=== PATIENT | male | born 1975 | race Caucasian/White ===

== ENCOUNTER 2020-04-14 10:47 | Inpatient (IN) | payer MEDICAID, SELFPAY ==
[2020-04-14] VITALS (14 sets, daily range): BP systolic 151–196; BP diastolic 104–147; PULSE 60–92; RESP 20–26; TEMP 35.7–36.1; O2SAT 92–100; BMI 32.1
--- NOTE | ~2020-04-14 | XR_ITS ---
EXAMINATION: XR chest 1V portable INDICATION: Cough and shortness of breath TECHNIQUE: Portable AP chest at 2156 hours COMPARISON: 04/14/2020 FINDINGS: There is stable cardiomegaly. A mild diffuse interstitial pattern persists with slight wors ening. There are small pleural effusions. No pneumothorax is identified. IMPRESSION: 1. Cardiomegaly with mildly increased pulmonary edema. Reviewed, dictated and finalized at location A.
--- NOTE | ~2020-04-14 | US_ITS ---
EXAMINATION: US retroperitoneal duplex ltd DATE: 04/17/2020 10:05 INDICATION: Uncontrolled hypertension TECHNIQUE: Multiple grayscale, color Doppler, and pulsed Doppler images of the kidneys and renal anna [place] were obtained. COMPARISON: None. FINDINGS: The aorta peak systolic velocity is 47 cm/s. Right kidney measures 11.2 cm in length with normal cont our and echogenicity and no hydronephrosis. The right renal artery peak systolic velocity is 46 cm/s in the proximal segment, 66 cm/s in the mid segment, and 88 cm/s in the distal segment. The left kidn ey measures 12.5 cm in length with normal contour and echogenicity and no hydronephrosis. The left re nal artery was unable to be visualized. IMPRESSION: 1. No Doppler evidence of right renal artery stenosis. Left renal artery was unable to be visualized . Reviewed, dictated and finalized at location A. IMPRESSION: 1. No Doppler evidence of right renal artery stenosis. Left renal artery was u nable to be visualized.
--- NOTE | ~2020-04-14 | XR_ITS ---
XR chest 2V DATE: 04/14/2020 12:32 INDICATION: Dyspnea, chest pain TECHNIQUE: PA and lateral views COMPARISON: 12/24/2015 chest 04/14/2020 CT pulmonary scan has not yet been performed FINDINGS: Mild cardiomegaly. There is mild pulmonary vascular congestion, mild prominence of the fiss ures and pulmonary interstitium, including Gianfranco B-lines. The findings are consistent with mild simona estive heart failure and pulmonary interstitial and subpleural edema. There is small pleural effusion s are suggested as well. No pulmonary consolidation is evident. Mild infiltrate or atelectasis at the lung bases, right greate r than left. No hilar or mediastinal enlargement. No pneumothorax. IMPRESSION: Mild congestive changes including subpleural and pulmonary interstitial edema and very sm all pleural effusions Mild bibasilar atelectasis, right greater than left Reviewed, dictated and finalized at location A. IMPRESSION: Mild congestive changes including subpleural and pulmonary intersti tial edema and very small pleural effusions Mild bibasilar atelectasis, right greater than left
--- NOTE | ~2020-04-14 | CT_ITS ---
EXAMINATION: CTA chest PE protocol DATE: 04/14/2020 12:48 INDICATION: Chest pain and dyspnea TECHNIQUE: Computed tomography (CT) pulmonary angiogram of the chest was performed with 100 mL Omnipa que-350 intravenous contrast. Additional 3D reconstructions utilizing coronal maximum intensity proje ction (MIP) were performed. Automated exposure control and iterative reconstruction technique were em ployed. The dose-length product was 760.04 mGy-cm. COMPARISON: None FINDINGS: Excellent contrast opacification of the pulmonary arteries. There is mild streak artifact from dense contrast in the superior vena cava and right atrium. Mild motion artifact which is most prominent sage ng side the heart and the left lower lung zone which mildly decreases sensitivity in some of the smal ler segmental and subsegmental pulmonary arteries in the left lower lobe and lingula. No pulmonary mo tion. Small bilateral posteriorly layering pleural effusions. Mild smooth septal line thickening at t he bilateral lung bases consistent with mild pulmonary edema. Mild groundglass opacity in the periphe ral posterior inferior bilateral lower lobes most likely subsegmental atelectasis or additional pulmo nary edema. No pneumonia or pneumothorax. There are few scattered bilateral small calcified pulmonary nodules along with calcified right hilar and mediastinal lymph nodes consistent with old granulomato us disease. Heart size is normal. With left ventricular hypertrophy. Small pericardial effusion. Athe rosclerotic coronary artery calcifications. Thoracic aorta is normal in caliber. Mild bilateral gynec omastia. Bones are unremarkable. IMPRESSION: 1. No pulmonary imposing. 2. Mild pulmonary edema and small bilateral pleural effusions. 3. Left ventricular hypertrophy. 4. Small pericardial effusion. Reviewed, dictated and finalized at location A.
--- NOTE | ~2020-04-14 | NM_ITS ---
EXAMINATION: NM baljeet stress w perfusion DATE: 04/17/2020 13:24 INDICATION: Chest pain. Cardiomyopathy. TECHNIQUE: Rest images were obtained following intravenous administration of 9 mCi Tc99m tetrofosmin (Myoview). The patient was infused intravenously with Lexiscan (regadenoson). Then, 27 mCi Tc99m tetr ofosmin (Myoview) was administered intravenously, and stress images were obtained. Data was reconstru cted into short axis and horizontal and vertical long axis SPECT images. Gated SPECT images were also obtained. COMPARISON: Chest CT 04/14/2020 FINDINGS: There is no definite reversible or fixed perfusion abnormality to suggest ischemia or infar ction. There is global hypokinesis. Left ventricular ejection fraction measures 26%. IMPRESSION: 1. No definite ischemia or infarct. 2. Global hypokinesis with left ventricular ejection fraction measuring 26%. Reviewed, dictated and finalized at location E.
--- NOTE | 2020-04-14 11:54 | ECG_ITS ---
Measurements Intervals [place] Rate: 86 P: 63 MN: 179 QRS: 24 QRSD: 104 T: 70 QT: 412 QTc: 494 Interpretive Statements SINUS RHYTHM LEFT ATRIAL ENLARGEMENT BORDERLINE T WAVE ABNORMALITY- LATERAL LEADS BASELINE ARTIFACT- I, II, III, V1-V3 BORDERLINE ECG Electronically Signed On 04-14-2020 11:58:06 CDT by Moshe Chavez D.O.
--- NOTE | 2020-04-14 11:55 | ED.CHESTPAIN ---
HPI - Chest Pain General Chief Complaint: Chest Pain Stated Complaint: CHEST PAIN Time Seen by Provider: 04/14/20 11:41 Source: patient and family Mode of arrival: ambulatory Limitations: no limitations History of Present Illness HPI narrative: Patient is a 45-year-old male who presents to the emergency department with complaint of chest pain and shortness of breath. Patient reports onset of symptoms a couple of weeks ago. Patient notes that he is short of breath when he is lying flat and has a cough when he is lying flat. He feels better when he is sitting up. Patient is also noted sharp chest pains. Patient reports being awoken at 2:00 this morning with worsening symptoms and feeling that something was sitting on his chest. The shortness of breath has persisted. He locates the pain under his ribs bilaterally and that it is been constant. Patient has a history of hypertension, but has been noncompliant with his medications and not taken them in at least a couple of months. Patient has not seen a primary care physician in approximately 1 year. Patient also has reported symptoms of sleep apnea, but never completed a sleep study. MD complaint: chest pain and other (dyspnea) Onset (ago): week(s) Timing of current episode: constant Prior episodes: Yes Onset: awoke with symptoms Pain location: subxiphoid (Under ribs bilaterally) Pain radiation: none Quality: heaviness and other (Something sitting on his chest) Relieving factors: sitting upright Exacerbating factors: other (Laying flat) Associated symptoms: dyspnea, cough (Nonproductive) and leg swelling Related Data Home Medications Medication Instructions Recorded Confirmed No Home Medications 04/14/20 04/14/20 Allergies Allergy/AdvReac Type Severity Reaction Status Date / Time No Known Allergies Allergy Verified 04/14/20 11:30 Review of Systems Review of Systems: All systems reviewed & are unremarkable except as noted in HPI and below Constitutional: Constitutional: Denies fever(s) ENT: Reports system reviewed and no additional complaints, except as documented and Reports as per HPI Cardiovascular: Cardiovascular: Reports chest pain, Reports pedal edema and Reports leg edema Respiratory: Respiratory: Reports cough and Reports dyspnea Gastrointestinal: Gastrointestinal: Denies abdominal pain PMF Past Medical History Medical History (Updated 04/14/20 @ 20:10 by Wendy Zamarripa MD) Hypertension Tobacco dependence Surgical History Surgical History No significant past surgical history Family History Family History (Updated 04/14/20 @ 16:54 by Emelyn Martínez RN) Other Unknown family medical history Social History Social History (Updated 04/14/20 @ 14:49 by Radha Rice PA-C) Social History: Mr. Daniels lives in [place]. He smokes Smoking packs per day: 0.5 Smoking cigarettes per day: 10.0 Years smoked: 9 Smoking pack-years: 4.50 Smoking status: Light tobacco smoker Tobacco type: cigarettes Alcohol intake: current Drinks per week: 6 Substance use: current Substance use type: marijuana Gender identity (if verbalized by the patient): Male Spiritual care concerns: No Exam Const: General: cooperative, no acute distress and alert Nutritional Appearance: overweight Orientation/consciousness: patient oriented x3 Limitations: no limitations HENMT: Mouth: Yes lip normal and Yes moist mucous membranes Resp: Effort & Inspection: normal respiratory effort Auscultation: clear to auscultation bilaterally Cardio: Rate: regular rate Rhythm: regular rhythm Peripheral pulses: dorsalis pedis present bilateral 2+ GI: GI Palp: Yes Soft to palpation and No Tenderness to palpation present (GI) Auscultation: normal bowel sounds Skin: General skin exam: normal color Neuro: General: patient oriented x3 Cognition (Neuro): normal cognition Sp
[2020-04-14 12:04] LABS: Basophils Absolute Auto 0.1 K/mm3 (0.0-0.1); Basophils Percent Auto 0.7 % (0.2-1.2); Eosinophils Absolute Auto 0.3 K/mm3 (0-0.3); Eosinophils Percent Auto 2.8 % (0-4.4); Hematocrit 46.9 % (42.0-52.0); Hemoglobin 16.1 g/dL (14.0-18.0); Immature Granulocyte Absolute 0.05 K/mm3 (0.00-0.031); Immature Granulocyte Percent A 0.5 % (0-0.5); Lymphocytes Absolute Auto 1.68 K/mm3 (0.9-3.2); Lymphocytes Percent Auto 15.9 % (18.3-44.2); Mean Corpuscular HGB Conc 34.3 g/dl (32-36); Mean Corpuscular Hemoglobin 31.6 pg (26-34); Mean Corpuscular Volume 92.1 fl (80-100); Mean Platelet Volume 11.1 fl (7.4-10.4); Monocytes Absolute Auto 0.6 K/mm3 (0.1-0.6); Monocytes Percent Auto 5.5 % (2.6-8.5); Neutrophils Absolute Auto 7.9 K/mm3 (1.3-6.7); Neutrophils Percent Auto 74.6 % (45.5-73.1); Platelet Count Result 213 k/mm3 (150-375); Red Blood Count 5.09 M/mm3 (4.6-6.20); Red Cell Distribution Width 13.4 % (11.5-14.5); White Blood Count 10.6 K/mm3 (4.5-10.0)
[2020-04-14] MEDS: ASPIRIN 81 MG CHEWABLE TABLET 324 MG PO (12:05)
[2020-04-14] MEDS: NITROGLYCERIN OINTMENT 1 INCH DOSE TRANSDERM ×3 (12:06→23:28)
[2020-04-14] MEDS: NITROGLYCERIN SL 0.4 MG TABLET SUBLINGUAL (12:08)
--- NOTE | 2020-04-14 12:17 | PC.NURSE ---
Placed Nitro patch on pts upper left shoulder, also gave pt 1 nitro pill. Pt states this helped his chest pain. Informed Dr. Osorio of this.
[2020-04-14 12:18] LABS: Prothrombin Time 12.4 Seconds (11.1-14.7)
[2020-04-14 12:19] LABS: Partial Thromboplastin Time 25.3 SECONDS (22.3-36.8)
[2020-04-14 12:21] LABS: D Dimer 1.02 ug/mL (<0.48)
[2020-04-14 12:23] LABS: Blood Urea Nitrogen 15 mg/dL (9-20); Calcium 8.8 mg/dL (8.4-10.2); Carbon Dioxide 27 mmol/L (22-30); Chloride 106 mmol/L (98-107); Estimated Glomerular Filt Rate > 60; Glucose 106 mg/dL (75-110); Potassium 3.2 mmol/L (3.4-5.0); Sodium 138 mmol/L (137-145)
[2020-04-14 12:40] LABS: NT Pro B Type Natriuretic Pept 2260 PG/ML (5-100); Troponin I 0.092 ng/mL (0.000-0.034)
[2020-04-14] MEDS: FUROSEMIDE INJ 40 MG/4 ML VIAL IV PUSH ×2 (14:28→20:02)
[2020-04-14 15:22] LABS: Troponin I 0.088 ng/mL (0.000-0.034)
--- NOTE | 2020-04-14 16:40 | PM.CNCAR ---
Assessment and Plan Additional Plan 45-year-old man with: Longstanding hypertension presenting with shortness of breath positional dyspnea suggests left ventricular dysfunction, unknown systolic versus diastolic at this time. Exam is more suggestive of diastolic dysfunction. He does have atypical momentary chest pain which does not seem anginal in nature by his description at this time I would recommend starting out with carvedilol and lisinopril to initially initiate medical antihypertensive therapy. IV furosemide is reasonable today he does not look dramatically volume overloaded so I do not think he is going to need to be diuresed for for more than 24-48 hours. Of course an echocardiogram will be ordered this will be useful in assessing the degree of hypertensive heart disease that we are dealing with here and we will provide further recommendations after the those findings are available Dave Pinedo MD [facility] History of Present Illness History of Present Illness Consult date/time: Date of service: 04/14/20 16:40 Consult reason: hypertension Reason For Visit: Acute congestive heart failure Narrative: This is a 45-year-old patient that I am seeing at the request of the hospitalist because of hypertension and dyspnea. The patient states he has not been ever mentioned or been aware of any cardiac problems that he has had in the past but has been having difficulty with shortness of breath starting about the last couple of months but getting particularly bothersome in the last 3-4 days. He has noticed shortness of breath with modest activity and in the last couple of days he has noticed symptoms of orthopnea with increasing dyspnea with the supine position. He has not had any accumulating lower extremity edema. Because of the sense of air hunger he came to the emergency department for evaluation. He is felt to be in some degree of decompensated heart failure after evaluation down there he has been admitted to IMU. Thus far his orders include some furosemide and nitroglycerin paste. He appears to be in no distress at this time he is still rather hypertensive and I do not see that any medication has been ordered for that specifically. IMS to see him in consultation presumably to assist with these matters. The order also reports that he has been having chest pain prompting consultation. The patient reports brief episodes of nonexertional central precordial pain that occurs in an unpredictable fashion. He does not describe at least at this time to me anything that sounds like exertional angina. His electrocardiogram shows a sinus mechanism with findings of left ventricular hypertrophy and secondary repolarization abnormalities. The patient states that he had not seen a physician in about 20 or 30 years and did see a physician because of headaches about 3 years ago. He was told to take medication for blood pressure with which he was not compliant and therefore is not on any medication coming into the hospital. He works as an asphalt paving foreman and smokes cigarettes about a half a pack per day Review of Systems Constitutional: Constitutional: Reports no additional constitutional complaints Eyes: Eyes: Reports no additional eye complaints ENT: Reports system reviewed and no additional complaints, except as documented Cardiovascular: Cardiovascular: Reports as per HPI Respiratory: Respiratory: Reports as per HPI Gastrointestinal: Gastrointestinal: Reports no additional gastrointestinal complaints Genitourinary: Genitourinary: Reports no additional male genitourinary complaints Musculoskeletal: Musculoskeletal: Reports arthralgias Neurologic: Reports system reviewed and no additional complaints, except as documented Psychiatric: Psychiatric: Reports no additional psychiatric complaints Endocrine: Endocrine: Reports no additional endocrine complaints Hematologic/Lymphatic: Hematologic/Lymphatic: Reports no additional hematologic/lymphatic c
--- NOTE | 2020-04-14 16:45 | PM.IMHP ---
H&P: HPI History of Present Illness Chief complaint: Chest pain and shortness of breath. Narrative: Pablito Daniels is a 45-year-old male smoker with untreated hypertension who presented to the emergency department earlier today for evaluation of chest pain and shortness of breath. Over the past over the past several weeks, he reports increasing dyspnea on lesser and lesser exertion. He lays asphalt for living, and his shortness of breath has been so bad over the past week or so and that he is having to stop and rest frequently. Over the past 2 days, things have gotten progressively worse and he now describes orthopnea and it is to the point that he is short of breath when even walking around the home. He has also had a mild, nonproductive cough. Additionally, he reports constant midsternal chest heaviness ?like a car is sitting on there for the past couple of days. In the emergency department today, his blood pressure was as high as 196/129. With further questioning, he does admit to being diagnosed with hypertension sometime last fall and he was started on several different medications. He stopped taking them however because they caused him to be sleepy. He has a sphygmomanometer at home and when he checks his blood pressures, they are typically in the 170s over 120s. He has no known history of sleep apnea, but does wake up at night at times feeling short of breath, and his fiancee reports that he snores loudly. He is frequently fatigued throughout the day as well. He denies lower extremity edema, recent travel, history of venous thromboembolism, and pleuritic pain. No known history of cardiac or pulmonary disease. He denies headache, vertigo, visual changes, focal weakness, and paresthesias. Review of Systems Review of Systems: Narrative: Twelve systems were reviewed with pertinent positives and negatives as per HPI. No fever or chills. Occasional sweats. No cold or flu symptoms. Denies nausea and vomiting. No diarrhea or constipation. Rare tingling in his feet. Except as documented, all other systems were reviewed and are negative. [facility] Past Medical History Medical History (Updated 04/14/20 @ 20:10 by Wendy Zamarripa MD) Hypertension Tobacco dependence Surgical History Surgical History No significant past surgical history Family History Family History (Updated 04/14/20 @ 16:54 by Emelyn Martínez RN) Other Unknown family medical history Social History Social History (Updated 04/14/20 @ 21:27 by Radha Rice PA-C) Social History: The patient was raised by his grandmother,, and does not know much about his parents. He does know that they are both in his father was an alcoholic. The patient himself has 4 children, who are healthy. He lives in [place] with his fiancee and children. He smokes about half a pack of cigarettes per day and has for the last 10 years. He drinks alcohol socially on the weekends, and in moderation, perhaps 6 beers a week. Occasional marijuana use. He designates his fiancee, Eliz Arias, as his surrogate decision maker and he wishes to be a full code. Smoking packs per day: 0.5 Smoking cigarettes per day: 10.0 Years smoked: 9 Smoking pack-years: 4.50 Smoking status: Light tobacco smoker Tobacco type: cigarettes Alcohol intake: current Drinks per week: 6 Substance use: current Substance use type: marijuana Gender identity (if verbalized by the patient): Male Spiritual care concerns: No Meds Home Medications and Allergies Home Medications Medication Instructions Recorded Confirmed Type No Home Medications 04/14/20 04/14/20 History Allergies Allergy/AdvReac Type Severity Reaction Status Date / Time No Known Allergies Allergy Verified 04/14/20 11:30 Vital Signs Vital Signs - 24 hr 04/14/20 11:10 04/14/20 12:32 04/14/20 14:16 Pulse Rate 86 85 74 R
--- NOTE | 2020-04-14 17:03 | ADMGEN ---
Addendum entered by Emelyn Martínez RN 04/14/20 17:09: arrived @ 1610 to IMU Original Note: This patient, Pablito Daniels, was admitted to IMU Room 204-01. Patient/family oriented to hospital policies and general routines including ID bracelet, bed and alarms, visiting hours, pain management, procedures, bathroom and other care routines, personal items, smoking policy, room service/diet, and visiting hours. Valuables list has been completed. Information on how to activate the Rapid Response Team has been discussed. Patient/Family are encouraged to report perceived risks to care and to ask questions if they do not understand what they are told or what they should do.
[2020-04-14] MEDS: carvediloL 12.5 MG TABLET PO (17:34)
[2020-04-14] MEDS: POTASSIUM CHLORIDE 20 MEQ TABLET.ER PO (17:36)
[2020-04-14] MEDS: lisinopriL 20 MG TABLET PO (17:36)
[2020-04-14 18:21] LABS: Troponin I 0.082 ng/mL (0.000-0.034)
[2020-04-15] VITALS (17 sets, daily range): BP systolic 144–166; BP diastolic 83–122; PULSE 71–90; RESP 20–26; TEMP 35.6–36.9; O2SAT 97–100
--- NOTE | 2020-04-15 | ECHO_ITS ---
Patient Info Name: Pablito Daniels Age: 45 years : 1975 Gender: Male Ht: 74 in Wt: 250 lbs BSA: 2.46 m2 HR: 70 bpm BP: 164 / 101 mmHg Heart Rhythm: Sinus Rhythm Technical Quality: Good Exam Date: 04/15/2020 8:57 AM Exam Location: [facility] Patient Status: Inpatient Admit Date: 04/14/2020 Staff Ordering Physician: Dave Pinedo MD Label Coder: Jonny Durham RDCS Attending Provider: Landon Good MD Referring Physician: Shahida BAHENA; Exam Type: CA echo doppler color flow Study Info Indications 401.9 - Unspecified Essential Hypertension Complete two-dimensional, color flow and Doppler transthoracic echocardiogram is performed. Strain analysis performed. History/Risk Factors HTN urgency; SOB, CHF, orthopnea. Summary 1. Left ventricular chamber dimension is moderately enlarged. 2. Left ventricular systolic function is moderately reduced, estimated at 35-40%. 3. There is moderately increased left ventricular wall thickness. 4. The left ventricular diastolic function is grade II diastolic dysfunction. 5. Global longitudinal strain is abnormal at 10 %. 6. Global hypokinesis of the left ventricle. 7. There is mild mitral valve regurgitation. 8. There is mild tricuspid valve regurgitation. Left Ventricle Left ventricular chamber dimension is moderately enlarged. Left ventricular systolic function is moderately reduced, estimated at 35-40%. There is moderately increased left ventricular wall thickness. The left ventricular diastolic function is grade II diastolic dysfunction. Global longitudinal strain is abnormal at 10 %. Global hypokinesis of the left ventricle. Right Ventricle Right ventricular chamber dimension is normal. Right ventricular systolic function is normal. Right Atria Right atrial chamber dimension is normal. Atrial Septum Intact interatrial septum visualized by color flow imaging. Aortic Valve The aortic valve is trileaflet. There is mild aortic valve sclerosis. There is no aortic valve stenosis. There is trace aortic valve regurgitation. Pulmonic Valve The pulmonic valve is normal. There is no pulmonic valve stenosis. There is trace pulmonic regurgitation. Mitral Valve The mitral valve has thickened leaflets. There is no mitral valve stenosis. There is mild mitral valve regurgitation. Tricuspid Valve The tricuspid valve leaflets are normal. There is no significant tricuspid valve stenosis. There is mild tricuspid valve regurgitation. Pericardium/Pleural The pericardium appears normal. There is no pericardial effusion. Inferior Vena Cava Normal inferior vena cava with >50% collapse upon inspiration consistent with normal right atrial pressure, 5 mmHg. Aorta The aortic root size at the sinus of Valsalva is normal. The prox ascending aorta size is normal. Left Ventricular Outflow Tract Name Value Normal LVOT 2D LVOT Diameter 2.2 cm LVOT Doppler LVOT Peak Gradient 11 mmHg LVOT Mean Gradient 6 mmHg LVOT VTI 2
[2020-04-15] MEDS: NITROGLYCERIN OINTMENT 1 INCH DOSE TRANSDERM (06:27)
[2020-04-15] MEDS: ACETAMINOPHEN 325 MG TABLET 650 MG PO (06:29)
[2020-04-15 06:48] LABS: Blood Urea Nitrogen 17 mg/dL (9-20); Calcium 8.4 mg/dL (8.4-10.2); Carbon Dioxide 29 mmol/L (22-30); Chloride 106 mmol/L (98-107); Estimated CRCL calculation 86 ml/min; Estimated Glomerular Filt Rate 60; Glucose 103 mg/dL (75-110); Magnesium 1.8 mg/dL (1.6-2.3); Potassium 3.2 mmol/L (3.4-5.0); Sodium 136 mmol/L (137-145)
[2020-04-15] MEDS: ASPIRIN 81 MG CHEWABLE TABLET PO (08:30)
[2020-04-15] MEDS: POTASSIUM CHLORIDE 20 MEQ TABLET 40 MEQ PO ×2 (08:30→12:11)
[2020-04-15] MEDS: carvediloL 12.5 MG TABLET PO (08:31)
[2020-04-15] MEDS: lisinopriL 20 MG TABLET PO (08:31)
[2020-04-15] MEDS: FUROSEMIDE INJ 40 MG/4 ML VIAL IV PUSH (08:31)
--- NOTE | 2020-04-15 10:37 | PM.PNCARD ---
Progress Note: A&P Assessment and Plan (1) Elevated troponin: Code(s): R79.89 - Other specified abnormal findings of blood chemistry Status: Acute Assessment and Plan: not related to acute plaque rupture (2) Congestive heart failure: Qualifiers: Heart failure chronicity: acute Heart failure type: unspecified Qualified Code(s): I50.9 - Heart failure, unspecified Code(s): I50.9 - Heart failure, unspecified Status: Acute Assessment and Plan: systolic in etiology. This is likely related to prolonged severe hypertension Continue current dose of carvedilol. Will discontinue nitroglycerin paste, add spironolactone 25 mg p.o. daily and stop lisinopril and switch him to Entresto 24/26 mg p.o. b.i.d. continue diuresis. Eventually will need an ischemic evaluation as an outpatient (3) Noncompliance with medications: Code(s): Z91.14 - Patient's other noncompliance with medication regimen Status: Acute (4) Tobacco dependence: Code(s): F17.200 - Nicotine dependence, unspecified, uncomplicated Status: Acute (5) Hypokalemia: Code(s): E87.6 - Hypokalemia Status: Acute (6) Hypertensive urgency: Code(s): I16.0 - Hypertensive urgency Status: Acute Assessment and Plan: blood pressure is more stable. Subjective Date/time seen: 04/15/20 10:37 Interval history: chief complaint: Shortness of breath, heart failure, hypertension Date of service 04/15/2020: He feels better but still short of breath with mild activity. No chest pain. No swelling Review of Systems Constitutional: Constitutional: Reports no additional constitutional complaints Eyes: Eyes: Reports no additional eye complaints ENT: Reports system reviewed and no additional complaints, except as documented Cardiovascular: Cardiovascular: Reports as per HPI Respiratory: Respiratory: Reports as per HPI Gastrointestinal: Gastrointestinal: Reports no additional gastrointestinal complaints Genitourinary: Genitourinary: Reports no additional male genitourinary complaints Musculoskeletal: Musculoskeletal: Reports arthralgias Neurologic: Reports system reviewed and no additional complaints, except as documented Psychiatric: Psychiatric: Reports no additional psychiatric complaints Endocrine: Endocrine: Reports no additional endocrine complaints Hematologic/Lymphatic: Hematologic/Lymphatic: Reports no additional hematologic/lymphatic complaints Exam Const: General: comfortable and no acute distress Other: Well-developed well-nourished HENMT: Mouth: Yes moist mucous membranes Eyes: Sclera: sclerae normal Pupils: Equal, round and reactive pupils present Neck: Neck: supple and no JVD Thyroid: thyroid normal Other: Normal carotid upstrokes no audible bruits Resp: Effort & Inspection: normal respiratory effort Auscultation: crackles bilateral at the base Cardio: Rate: regular rate Rhythm: regular rhythm Other: PMI difficult to palpate S4 is evident, no murmur GI: Auscultation: normal bowel sounds Skin: General skin exam: normal color Neuro: Cranial nerves: Yes Equal, round and reactive pupils present Cognition (Neuro): normal cognition Extrem: General: normal to inspection Other: Distal perfusion is intact there is no perceptible edema Psych: Appearance: grossly normal Objective Data Vital Signs Vital Signs: Vital Signs - 24 hr 04/14/20 11:10 04/14/20 12:32 04/14/20 14:16 Temperature Pulse Rate 86 85 74 Respiratory Rate 20 Blood Pressure 175/129 H 151/108 H Pulse Oximetry 92 97 04/14/20 16:16 04/14/20 16:42 04/14/20 17:00 Temperature 35.7 C L Pulse Rate 85 73 89 Respiratory Rate 20 20 Blood Pressure 183/135 H 195/147 H Pulse Oximetry 100 99 04/14/20 17:05 04/14/20 17:34 04/14/20 18:00 Temperature Pulse Rate 92 89 Respiratory Rate Blood Pressure 196/129 H Pulse Oximetry 04/14/20
[2020-04-15] MEDS: SPIRONOLACTONE 25 MG TABLET PO (12:11)
--- NOTE | 2020-04-15 13:02 | PC.NURSE ---
Dr. Dowell notified of elevated blood pressure 157/113. No complaints of headache, shortness of breath or chest pain. No additional orders at this time. Will continue to monitor closely.
[2020-04-15] MEDS: POTASSIUM CHLORIDE 20 MEQ TABLET.ER PO (16:55)
[2020-04-15] MEDS: LORAZEPAM 0.5 MG TABLET PO ×2 (16:56→23:44)
--- NOTE | 2020-04-15 18:10 | PM.IMPN ---
Progress Note: A&P Assessment and Plan (1) Congestive heart failure: Qualifiers: Heart failure chronicity: acute Heart failure type: unspecified Qualified Code(s): I50.9 - Heart failure, unspecified Code(s): I50.9 - Heart failure, unspecified Status: Acute Assessment and Plan: Clinically appears to have congestive heart failure with elevated BNP and pulmonary edema noted on imaging. Confirmed by echo 04/15 EF 35% LVH chest x-ray and echo, likely due to longstanding uncontrolled hypertension. diuresed, MARTIR-inhibitor, beta-osiel, cardiology to add Entresto . (2) Hypertensive urgency: Code(s): I16.0 - Hypertensive urgency Status: Acute Assessment and Plan: Longstanding, uncontrolled hypertension. He has been started on carvedilol and lisinopril and will change to entresto (3) Elevated troponin: Code(s): R79.89 - Other specified abnormal findings of blood chemistry Status: Acute Assessment and Plan: Secondary to CHF and uncontrolled hypertension. Echocardiogram as above. (4) Hypokalemia: Code(s): E87.6 - Hypokalemia Status: Acute Assessment and Plan: Potassium will be replaced and will be monitored. 100 meq today (5) Noncompliance with medications: Code(s): Z91.14 - Patient's other noncompliance with medication regimen Status: Acute Assessment and Plan: Patient told dr akins he did not take his antihypertensives because made him feel sleepy. History suggestive of possible sleep apnea, thus will direct apnea link. Dr akins discussed the importance of controlling his hypertension, and the complication he can expect should it continue to go uncontrolled. (6) Tobacco dependence: Code(s): F17.200 - Nicotine dependence, unspecified, uncomplicated Status: Acute Assessment and Plan: Smoking cessation is imperative and was discussed. Between 3 and 5 minutes were spent counseling the patient in smoking cessation. He seems motivated, tells me he only started smoking within the last 10 years or less. Subjective Date/time seen: 04/15/20 18:10 Interval history: Date of visit 04/15. 45-year-old hypertensive male admitted with heart decelerated hypertension and congestive heart failure. Feeling better less short of breath and no edema, but no chest pain Exam Narrative: Exam Narrative: Blood pressure 164/82 pulse is 80 and regular afebrile General: Well-developed male sitting up in bed in no acute distress. HEENT: . PERRL, . Sclerae anicteric. . Neck: Supple. No JVD.. Respiratory: Lungs are clear to auscultation bilaterally. Cardiovascular: Regular rate and rhythm with S1-S2. S4 evident. Gastrointestinal: Abdomen is soft, nontender, and nondistended with positive bowel sounds. Skin: Warm and dry. No rash or lesions Extremities: No edema. Radial and pedal pulses intact. Neurological: Alert. Cranial nerves 2-12 are grossly intact. No gross focal deficits Psychiatric: Pleasant and cooperative with normal mood and affect. Objective Data Vital Signs Vital Signs: Vital Signs - 24 hr 04/14/20 19:03 04/14/20 19:49 04/14/20 20:00 Temperature 36.1 C L Pulse Rate 79 76 77 Respiratory Rate 26 H Blood Pressure 170/106 H 161/104 H Pulse Oximetry 98 04/14/20 22:00 04/14/20 23:39 04/15/20 00:00 Temperature 35.8 C L Pulse Rate 60 75 77 Respiratory Rate 22 H Blood Pressure 151/118 H Pulse Oximetry 95 04/15/20 02:00 04/15/20 04:00 04/15/20 04:31 Temperature 36.4 C L Pulse Rate 75 71 73 Respiratory Rate 20 Blood Pressure 164/101 H Pul
[2020-04-15] MEDS: carvediloL 25 MG TABLET PO (19:59)
[2020-04-16] VITALS (21 sets, daily range): BP systolic 155–185; BP diastolic 108–138; PULSE 20–88; RESP 18–24; TEMP 36.1–36.7; O2SAT 95–100
[2020-04-16 05:04] LABS: Blood Urea Nitrogen 23 mg/dL (9-20); Carbon Dioxide 25 mmol/L (22-30); Chloride 107 mmol/L (98-107); Estimated CRCL calculation 80 ml/min; Estimated Glomerular Filt Rate 55; Glucose 99 mg/dL (75-110); Potassium 3.6 mmol/L (3.4-5.0); Sodium 138 mmol/L (137-145)
[2020-04-16] MEDS: carvediloL 25 MG TABLET PO ×2 (08:38→20:02)
[2020-04-16] MEDS: POTASSIUM CHLORIDE 20 MEQ TABLET.ER PO ×2 (08:39→17:19)
[2020-04-16] MEDS: ASPIRIN 81 MG CHEWABLE TABLET PO (08:39)
[2020-04-16] MEDS: SPIRONOLACTONE 25 MG TABLET PO (08:40)
[2020-04-16] MEDS: lisinopriL 20 MG TABLET PO (08:40)
[2020-04-16] MEDS: LORAZEPAM 0.5 MG TABLET PO ×3 (08:42→23:20)
--- NOTE | 2020-04-16 10:28 | PM.PNCARD ---
Progress Note: A&P Assessment and Plan (1) Elevated troponin: Code(s): R79.89 - Other specified abnormal findings of blood chemistry Status: Acute Assessment and Plan: not related to acute plaque rupture (2) Congestive heart failure: Qualifiers: Heart failure chronicity: acute Heart failure type: unspecified Qualified Code(s): I50.9 - Heart failure, unspecified Code(s): I50.9 - Heart failure, unspecified Status: Acute Assessment and Plan: systolic in etiology. This is likely related to prolonged severe hypertension Agree with carvedilol 25 mg p.o. b.i.d.., continue spironolactone, lisinopril at current dosages. Will add hydralazine 25 mg p.o. t.i.d.. Eventually will need an ischemic evaluation as an outpatient (3) Noncompliance with medications: Code(s): Z91.14 - Patient's other noncompliance with medication regimen Status: Acute Assessment and Plan: Encouraged (4) Tobacco dependence: Code(s): F17.200 - Nicotine dependence, unspecified, uncomplicated Status: Acute (5) Hypokalemia: Code(s): E87.6 - Hypokalemia Status: Acute Assessment and Plan: Normalized. (6) Hypertensive urgency: Code(s): I16.0 - Hypertensive urgency Status: Acute Assessment and Plan: Blood pressure still uncontrolled.? Secondary causes of hypertension. Does have sleep apnea but has not been treated because he cannot do a sleep study. Untreated sleep apnea can cause hypertension, low potassium is also noted and therefore will check a renin/aldosterone level. Will also check a renal artery ultrasound Subjective Date/time seen: 04/16/20 10:28 Interval history: chief complaint: Shortness of breath, heart failure, hypertension Date of service 04/16/2020: He still feels short of breath. No edema. No palpitations. Review of Systems Constitutional: Constitutional: Reports no additional constitutional complaints Eyes: Eyes: Reports no additional eye complaints ENT: Reports system reviewed and no additional complaints, except as documented Cardiovascular: Cardiovascular: Reports as per HPI Respiratory: Respiratory: Reports as per HPI Gastrointestinal: Gastrointestinal: Reports no additional gastrointestinal complaints Genitourinary: Genitourinary: Reports no additional male genitourinary complaints Musculoskeletal: Musculoskeletal: Reports arthralgias Neurologic: Reports system reviewed and no additional complaints, except as documented Psychiatric: Psychiatric: Reports no additional psychiatric complaints Endocrine: Endocrine: Reports no additional endocrine complaints Hematologic/Lymphatic: Hematologic/Lymphatic: Reports no additional hematologic/lymphatic complaints Allergic/Immunologic: Allergic/Immunologic: Reports no additional allergic/immunologic complaints Exam Const: General: comfortable and no acute distress Other: Well-developed well-nourished HENMT: Mouth: Yes moist mucous membranes Eyes: Sclera: sclerae normal Pupils: Equal, round and reactive pupils present Neck: Neck: supple and no JVD Thyroid: thyroid normal Other: Normal carotid upstrokes no audible bruits Resp: Effort & Inspection: normal respiratory effort Auscultation: crackles bilateral at the base Cardio: Rate: regular rate Rhythm: regular rhythm Other: PMI difficult to palpate S4 is evident, no murmur GI: Auscultation: normal bowel sounds Skin: General skin exam: normal color Neuro: Cranial nerves: Yes Equal, round and reactive pupils present Cognition (Neuro): normal cognition Extrem: General: normal to inspection Other: Distal perfusion is intact there is no perceptible edema Psych: Appearance: grossly normal Objective Data Vital Signs Vital Signs: Vital Signs - 24 hr 04/15/20 11:59 04/15/20 12:00 04/15/20 14:00 Temperature 36.2 C L Pulse Rate 82 74 71 Respiratory Rate 24 H Blood Pressure
[2020-04-16] MEDS: hydrALAZINE HCL 25 MG TABLET PO ×2 (11:40→17:19)
--- NOTE | 2020-04-16 14:50 | PC.NURSE ---
Non-administered 1300 dose of Hydralazine 25mg due to first dose arriving to floor from pharmacy at 1130 and administration was at 1140.
--- NOTE | 2020-04-16 17:57 | PM.IMPN ---
Progress Note: A&P Assessment and Plan (1) Congestive heart failure: Qualifiers: Heart failure chronicity: acute Heart failure type: unspecified Qualified Code(s): I50.9 - Heart failure, unspecified Code(s): I50.9 - Heart failure, unspecified Status: Acute Assessment and Plan: Clinically appears to have congestive heart failure with elevated BNP and pulmonary edema noted on imaging. Confirmed by echo 04/15 EF 35% LVH chest x-ray and echo, likely due to longstanding uncontrolled hypertension. diuresed, MARTIR-inhibitor, beta-osiel, cardiology adding hydralazine stop diruretic with increasing bun and creatinine . (2) Hypertensive urgency: Code(s): I16.0 - Hypertensive urgency Status: Acute Assessment and Plan: Longstanding, uncontrolled hypertension. He has been started on carvedilol and lisinopril and adding hydralazine (3) Elevated troponin: Code(s): R79.89 - Other specified abnormal findings of blood chemistry Status: Acute Assessment and Plan: Secondary to CHF and uncontrolled hypertension. Echocardiogram as above. (4) Hypokalemia: Code(s): E87.6 - Hypokalemia Status: Acute Assessment and Plan: Potassium will be replaced and will be monitored. 100 meq today K 3.8 today and aldactone added (5) Noncompliance with medications: Code(s): Z91.14 - Patient's other noncompliance with medication regimen Status: Acute Assessment and Plan: Patient told dr akins he did not take his antihypertensives because made him feel sleepy. History suggestive of possible sleep apnea, thus will direct apnea link. Dr akins discussed the importance of controlling his hypertension, and the complication he can expect should it continue to go uncontrolled. (6) Tobacco dependence: Code(s): F17.200 - Nicotine dependence, unspecified, uncomplicated Status: Acute Assessment and Plan: Smoking cessation is imperative and was discussed. Between 3 and 5 minutes were spent counseling the patient in smoking cessation. He seems motivated, tells me he only started smoking within the last 10 years or less. Subjective Date/time seen: 04/16/20 17:57 Interval history: Date of visit 04/16. 45-year-old hypertensive male admitted with accelerated hypertension and congestive heart failure. Feeling better but still short of breath and no edema, no chest pain Exam Narrative: Exam Narrative: Blood pressure 170/120 pulse is 86 and regular afebrile 97% @L General: Well-developed male sitting up in bed in no acute distress. HEENT: . PERRL, . Sclerae anicteric. . Neck: Supple. No JVD.. Respiratory: Lungs are clear to auscultation bilaterally. Cardiovascular: Regular rate and rhythm with S1-S2. S4 evident. Gastrointestinal: Abdomen is soft, nontender, and nondistended with positive bowel sounds. Skin: Warm and dry. No rash or lesions Extremities: No edema. Radial and pedal pulses intact. Neurological: Alert. Cranial nerves 2-12 are grossly intact. No gross focal deficits Psychiatric: Pleasant and cooperative with normal mood and affect. Objective Data Vital Signs Vital Signs: Vital Signs - 24 hr 04/15/20 18:00 04/15/20 19:59 04/15/20 20:00 Temperature 35.6 C L Pulse Rate 90 79 85 Respiratory Rate 20 Blood Pressure 164/117 H Pulse Oximetry 99 05/19/20 22:00 04/15/20 23:59 04/16/20 00:00 Temperature 35.9 C L Pulse Rate 81 73 77 Respiratory Rate 20 Blood Pressure 166/122 H Pulse Oximetry 98 04/16/20 02:00 04/16/20 02:24 04/16/20 03:45 Temperature 36.6 C 3
[2020-04-17] VITALS (19 sets, daily range): BP systolic 158–183; BP diastolic 109–138; PULSE 64–85; RESP 12–22; TEMP 35.7–36.4; O2SAT 98–100
--- NOTE | 2020-04-17 | EST_ITS ---
Patient Info Name: Pablito Daniels Age: 45 years : 1975 Gender: Male Ht: 74 in Wt: 249 lbs BSA: 2.46 m2 Exam Date: 04/17/2020 12:26 PM Exam Location: [facility] Stress Patient Status: Inpatient Admit Date: 04/17/2020 Staff Ordering Physician: Jeimy Mustafa APRN Attending Provider: Landon Good MD Exercise Technologist: Senthil Padilla, RDPATRICIA, RT Nurse: Jeimy Mustafa, ANP, ACNP-BC Exam Type: CA stress baljeet w NM Study Info A regadenoson stress test was performed. Summary 1. Please correlate with nuclear medicine images, reported separately. 2. No abnormal ST-T wave changes with lexiscan. Protocol: Lexiscan Stress ECG Details Stage: REST Duration (min): 1 min : 54 sec HR (bpm): 77 SBP (mmHg): 161 DBP (mmHg): 120 Stage: REST Duration (min): 8 min : 40 sec HR (bpm): 74 SBP (mmHg): 161 DBP (mmHg): 120 Stage: STAGE 1 Duration (min): 1 min : 0 sec HR (bpm): 81 SBP (mmHg): 170 DBP (mmHg): 112 Stage: RECOVERY Duration (min): 1 min : 0 sec HR (bpm): 84 SBP (mmHg): 170 DBP (mmHg): 112 Stage: RECOVERY Duration (min): 2 min : 0 sec HR (bpm): 82 SBP (mmHg): 170 DBP (mmHg): 112 Stage: RECOVERY Duration (min): 3 min : 0 sec HR (bpm): 78 SBP (mmHg): 160 DBP (mmHg): 116 Stage: RECOVERY Duration (min): 4 min : 0 sec HR (bpm): 75 SBP (mmHg): 160 DBP (mmHg): 116 Stage: RECOVERY Duration (min): 5 min : 0 sec HR (bpm): 81 SBP (mmHg): 168 DBP (mmHg): 114 Stage: RECOVERY Duration (min): 5 min : 19 sec HR (bpm): 77 SBP (mmHg): 168 DBP (mmHg): 114 Rest HR: 74 bpm Peak HR: 84 bpm Rest Sys BP: 161 mmHg Peak Sys BP: 170 mmHg Max Pred HR: 175 bpm % Max Pred HR: 48 % Target HR: 149 bpm Max RPP: 14,280 bpm*mmHg BP Response: Normal blood pressure response Termination Reason: Completed protocol Cardiac Symptoms: None Total Time: 1 min : 0 sec Rest Lee BP: 120 mmHg Peak Lee BP: 112 mmHg Total Dose: 0.4 mg Resting ECG Normal sinus rhythm. IVCD, Prolonged QT. Stress ECG No abnormal ST/T wave changes with exercise. Arrhythmias None. Report Signatures
[2020-04-17 06:56] LABS: Blood Urea Nitrogen 24 mg/dL (9-20); Calcium 8.8 mg/dL (8.4-10.2); Carbon Dioxide 23 mmol/L (22-30); Chloride 109 mmol/L (98-107); Estimated CRCL calculation 80 ml/min; Estimated Glomerular Filt Rate 55; Glucose 103 mg/dL (75-110); Potassium 4.2 mmol/L (3.4-5.0); Sodium 138 mmol/L (137-145)
[2020-04-17] MEDS: carvediloL 25 MG TABLET PO ×2 (08:15→20:57)
[2020-04-17] MEDS: ASPIRIN 81 MG CHEWABLE TABLET PO (08:16)
[2020-04-17] MEDS: lisinopriL 20 MG TABLET PO (08:16)
[2020-04-17] MEDS: SPIRONOLACTONE 25 MG TABLET PO (08:16)
[2020-04-17] MEDS: hydrALAZINE HCL 50 MG TABLET PO ×3 (08:16→20:57)
--- NOTE | 2020-04-17 11:21 | PM.PNCARD ---
Progress Note: A&P Assessment and Plan (1) Elevated troponin: Code(s): R79.89 - Other specified abnormal findings of blood chemistry Status: Acute Assessment and Plan: not related to acute plaque rupture (2) Congestive heart failure: Qualifiers: Heart failure chronicity: acute Heart failure type: unspecified Qualified Code(s): I50.9 - Heart failure, unspecified Code(s): I50.9 - Heart failure, unspecified Status: Acute Assessment and Plan: systolic in etiology. This is likely related to prolonged severe hypertension Continue carvedilol, spironolactone, lisinopril, hydralazine. Unfortunately his blood pressure is still quite high. Renal ultrasound was performed. Unfortunately left renal artery was not visualized but there is no renal artery stenosis on the right. Given 1 good renal artery, LENY is unlikely to be in etiology of his severe hypertension. Renin/aldosterone levels are still pending. I will check a TSH and a free T4 level as hyper and hypothyroidism can both be secondary causes of hypertension. Add isosorbide mononitrate 30 mg p.o. daily hopefully to decrease LVEDP which is presumed to be quite elevated Given his cardiomyopathy, I am going to proceed in order a Lexiscan myocardial perfusion study for today. (3) Noncompliance with medications: Code(s): Z91.14 - Patient's other noncompliance with medication regimen Status: Acute Assessment and Plan: Encouraged (4) Tobacco dependence: Code(s): F17.200 - Nicotine dependence, unspecified, uncomplicated Status: Acute (5) Hypokalemia: Code(s): E87.6 - Hypokalemia Status: Acute Assessment and Plan: Normalized. (6) Hypertensive urgency: Code(s): I16.0 - Hypertensive urgency Status: Acute Assessment and Plan: Blood pressure still uncontrolled.? Secondary causes of hypertension. Does have sleep apnea but has not been treated because he cannot do a sleep study. Untreated sleep apnea can cause hypertension. Workup as above Subjective Date/time seen: 04/17/20 11:21 Interval history: chief complaint: Shortness of breath, heart failure, hypertension Date of service 04/17/2020: He still feels short of breath with mild activity.. No edema. No palpitations. No chest pain Review of Systems Constitutional: Constitutional: Reports no additional constitutional complaints Eyes: Eyes: Reports no additional eye complaints ENT: Reports system reviewed and no additional complaints, except as documented Cardiovascular: Cardiovascular: Reports as per HPI Respiratory: Respiratory: Reports as per HPI Gastrointestinal: Gastrointestinal: Reports no additional gastrointestinal complaints Genitourinary: Genitourinary: Reports no additional male genitourinary complaints Musculoskeletal: Musculoskeletal: Reports arthralgias Neurologic: Reports system reviewed and no additional complaints, except as documented Psychiatric: Psychiatric: Reports no additional psychiatric complaints Endocrine: Endocrine: Reports no additional endocrine complaints Hematologic/Lymphatic: Hematologic/Lymphatic: Reports no additional hematologic/lymphatic complaints Allergic/Immunologic: Allergic/Immunologic: Reports no additional allergic/immunologic complaints Exam Const: General: comfortable and no acute distress Other: Well-developed well-nourished HENMT: Mouth: Yes moist mucous membranes Eyes: Sclera: sclerae normal Pupils: Equal, round and reactive pupils present Neck: Neck: supple and no JVD Thyroid: thyroid normal Other: Normal carotid upstrokes no audible bruits Resp: Effort & Inspection: normal respiratory effort Auscultation: crackles bilateral at the base Cardio: Rate: regular rate Rhythm: regular rhythm Other: PMI difficult to palpate S4 is evident, no murmur GI: Auscultation: normal bowel sounds Skin: General skin exam: normal color
[2020-04-17] MEDS: ISOSORBIDE MONONITRATE 30 MG TAB.ER.24H PO (17:04)
--- NOTE | 2020-04-17 17:56 | PM.IMPN ---
Progress Note: A&P Assessment and Plan (1) Congestive heart failure: Qualifiers: Heart failure chronicity: acute Heart failure type: unspecified Qualified Code(s): I50.9 - Heart failure, unspecified Code(s): I50.9 - Heart failure, unspecified Status: Acute Assessment and Plan: Clinically has congestive heart failure with elevated BNP and pulmonary edema noted on imaging. Confirmed by echo 04/15 EF 35%, EF 26% today by nuclear LVH chest x-ray and echo, likely due to longstanding uncontrolled hypertension. diuresed, MARTIR-inhibitor, beta-osiel, cardiology adding hydralazine and nitrate today 04/17 stopped diruretic with increasing bun and creatinine . (2) Hypertensive urgency: Code(s): I16.0 - Hypertensive urgency Status: Acute Assessment and Plan: Longstanding, uncontrolled hypertension. He has been started on carvedilol and lisinopril and adding hydralazine and nitrate. LENY not seen of renal artery doppler (3) Elevated troponin: Code(s): R79.89 - Other specified abnormal findings of blood chemistry Status: Acute Assessment and Plan: Secondary to CHF and uncontrolled hypertension. Echocardiogram as above. (4) Hypokalemia: Code(s): E87.6 - Hypokalemia Status: Acute Assessment and Plan: Potassium will be replaced and will be monitored. 100 meq today K 4.2 today and aldactone had been added (5) Noncompliance with medications: Code(s): Z91.14 - Patient's other noncompliance with medication regimen Status: Acute Assessment and Plan: Patient told dr akins he did not take his antihypertensives because made him feel sleepy. History suggestive of possible sleep apnea, direct apnea link last pm. Dr akins discussed the importance of controlling his hypertension, and the complication he can expect should it continue to go uncontrolled. (6) Tobacco dependence: Code(s): F17.200 - Nicotine dependence, unspecified, uncomplicated Status: Acute Assessment and Plan: Smoking cessation is imperative and was discussed. Between 3 and 5 minutes were spent counseling the patient in smoking cessation. He seems motivated, tells me he only started smoking within the last 10 years or less. Subjective Date/time seen: 04/17/20 17:56 Interval history: Date of visit 04/17. 45-year-old hypertensive male admitted with accelerated hypertension and congestive heart failure. Feeling some better but still short of breath and no edema, no chest pain Exam Narrative: Exam Narrative: Blood pressure 164/114 RA=LA sitting with manual bp, pulse is 80 and regular afebrile 97% @L General: Well-developed male sitting up in bed in no acute distress. HEENT: . PERRL, . Sclerae anicteric. . Neck: Supple. No JVD.. Respiratory: Lungs are clear to auscultation bilaterally. Cardiovascular: Regular rate and rhythm with S1-S2. S4 evident. Gastrointestinal: Abdomen is soft, nontender, and nondistended with positive bowel sounds. Skin: Warm and dry. No rash or lesions Extremities: No edema. Radial and pedal pulses intact. Neurological: Alert. Cranial nerves 2-12 are grossly intact. No gross focal deficits Psychiatric: Pleasant and cooperative with normal mood and affect. Objective Data Vital Signs Vital Signs: Vital Signs - 24 hr 04/16/20 18:00 04/16/20 19:19 04/16/20 20:00 Temperature 36.1 C L Pulse Rate 82 80 85 Respiratory Rate 24 H Blood Pressure 166/121 H Pulse Oximetry 96 04/16/20 20:02 04/16/20 22:00 04/17/20 00:00 Temperature Pulse Rate 82 88 81 Respiratory Rate
[2020-04-17 19:46] LABS: T4 Thyroxine 7.22 ug/dL (5.53-11.0)
[2020-04-17] MEDS: LORAZEPAM 0.5 MG TABLET PO (20:58)
[2020-04-18] VITALS (18 sets, daily range): BP systolic 151–184; BP diastolic 96–123; PULSE 53–86; RESP 18–22; TEMP 35.8–36.1; O2SAT 95–100
[2020-04-18] MEDS: LORAZEPAM 0.5 MG TABLET PO ×4 (03:05→21:10)
[2020-04-18] MEDS: GUAIFENESIN/DEXTROMETHORPHAN 10 ML UDC 5 ML PO ×2 (03:06→08:56)
[2020-04-18 05:12] LABS: Blood Urea Nitrogen 24 mg/dL (9-20); Calcium 8.5 mg/dL (8.4-10.2); Carbon Dioxide 22 mmol/L (22-30); Chloride 109 mmol/L (98-107); Estimated CRCL calculation 81 ml/min; Estimated Glomerular Filt Rate 55; Glucose 100 mg/dL (75-110); Potassium 3.6 mmol/L (3.4-5.0); Sodium 137 mmol/L (137-145)
[2020-04-18] MEDS: hydrALAZINE HCL 50 MG TABLET PO ×3 (06:08→21:09)
[2020-04-18] MEDS: ISOSORBIDE MONONITRATE 30 MG TAB.ER.24H PO (08:57)
[2020-04-18] MEDS: SPIRONOLACTONE 25 MG TABLET PO (08:57)
[2020-04-18] MEDS: ASPIRIN 81 MG CHEWABLE TABLET PO (08:57)
[2020-04-18] MEDS: lisinopriL 20 MG TABLET PO (08:57)
[2020-04-18] MEDS: carvediloL 25 MG TABLET PO ×2 (10:45→21:08)
--- NOTE | 2020-04-18 10:56 | PM.PNCARD ---
Progress Note: A&P Assessment and Plan (1) Elevated troponin: Code(s): R79.89 - Other specified abnormal findings of blood chemistry Status: Acute Assessment and Plan: not related to acute plaque rupture (2) Congestive heart failure: Qualifiers: Heart failure chronicity: acute Heart failure type: unspecified Qualified Code(s): I50.9 - Heart failure, unspecified Code(s): I50.9 - Heart failure, unspecified Status: Acute Assessment and Plan: systolic in etiology. This is likely related to prolonged severe hypertension Continue carvedilol, spironolactone, lisinopril, hydralazine. Renin/aldosterone levels are still pending. He is feeling better. Blood pressures are improving. Stress test did confirm a severe cardiomyopathy with an ejection fraction of 26% Would recommend a LifeVest because of lack of insurance, this will not be feasible (3) Noncompliance with medications: Code(s): Z91.14 - Patient's other noncompliance with medication regimen Status: Acute Assessment and Plan: Encouraged (4) Tobacco dependence: Code(s): F17.200 - Nicotine dependence, unspecified, uncomplicated Status: Acute (5) Hypokalemia: Code(s): E87.6 - Hypokalemia Status: Acute Assessment and Plan: Low today. Will replace with KCl 40 mg p.o. x1 (6) Hypertensive urgency: Code(s): I16.0 - Hypertensive urgency Status: Acute Assessment and Plan: Blood pressure still uncontrolled but it is improving..? Secondary causes of hypertension. Does have sleep apnea but has not been treated because he cannot do a sleep study. Untreated sleep apnea can cause hypertension. Workup as above He also needs a sleep study when he obtains insurance. I did spend time with him today talking about the absolute importance of him getting insurance for medications as well as for follow-up. He will need long-term follow-up. He will need up titration to his medical regimen, future echos, sleep studies and CPAP use, possible catheterization or even defibrillator in the future. He verbalizes understanding and is working on insurance Okay to transfer to Medicine and possibly discharge home tomorrow Subjective Date/time seen: 04/18/20 10:56 Interval history: chief complaint: Shortness of breath, heart failure, hypertension Date of service 04/18/2020: If she feels much better today. Less short of breath. Had a good night sleep and he was noticeably apneic while sleeping. No chest pain Review of Systems Constitutional: Constitutional: Reports no additional constitutional complaints Eyes: Eyes: Reports no additional eye complaints ENT: Reports system reviewed and no additional complaints, except as documented Cardiovascular: Cardiovascular: Reports as per HPI Respiratory: Respiratory: Reports as per HPI Gastrointestinal: Gastrointestinal: Reports no additional gastrointestinal complaints Genitourinary: Genitourinary: Reports no additional male genitourinary complaints Musculoskeletal: Musculoskeletal: Reports arthralgias Neurologic: Reports system reviewed and no additional complaints, except as documented Psychiatric: Psychiatric: Reports no additional psychiatric complaints Endocrine: Endocrine: Reports no additional endocrine complaints Hematologic/Lymphatic: Hematologic/Lymphatic: Reports no additional hematologic/lymphatic complaints Allergic/Immunologic: Allergic/Immunologic: Reports no additional allergic/immunologic complaints Exam Const: General: comfortable and no acute distress Other: Well-developed well-nourished HENMT: Mouth: Yes moist mucous membranes Eyes: Sclera: sclerae normal Pupils: Equal, round and reactive pupils present Neck: Neck: supple and no JVD Thyroid: thyroid normal Other: Normal carotid upstrokes no audible bruits Resp: Effort & Inspection: normal respiratory effort Auscultation: crac
--- NOTE | 2020-04-18 11:40 | PM.IMPN ---
Progress Note: A&P Assessment and Plan (1) Congestive heart failure: Qualifiers: Heart failure chronicity: acute Heart failure type: unspecified Qualified Code(s): I50.9 - Heart failure, unspecified Code(s): I50.9 - Heart failure, unspecified Status: Acute Assessment and Plan: Clinically has congestive heart failure with elevated BNP and pulmonary edema noted on imaging. Confirmed by echo 04/15 EF 35%, EF 26% today by nuclear LVH chest x-ray and echo, likely due to longstanding uncontrolled hypertension. spirolactone, MARTIR-inhibitor, beta-osiel, hydralazine and nitrate (2) Hypertensive urgency: Code(s): I16.0 - Hypertensive urgency Status: Acute Assessment and Plan: Longstanding, uncontrolled hypertension. He has been started on carvedilol and lisinopril and adding hydralazine and nitrate. LENY not seen of renal artery doppler (3) Elevated troponin: Code(s): R79.89 - Other specified abnormal findings of blood chemistry Status: Acute Assessment and Plan: Secondary to CHF and uncontrolled hypertension. Echocardiogram as above. (4) Hypokalemia: Code(s): E87.6 - Hypokalemia Status: Acute Assessment and Plan: Potassium will be replaced and will be monitored. 100 meq today K 4.2 today and aldactone had been added (5) Noncompliance with medications: Code(s): Z91.14 - Patient's other noncompliance with medication regimen Status: Acute Assessment and Plan: Patient told dr good he did not take his antihypertensives because made him feel sleepy. History suggestive of possible sleep apnea, direct apnea link last pm. Dr Good discussed the importance of controlling his hypertension in the past. (6) Tobacco dependence: Code(s): F17.200 - Nicotine dependence, unspecified, uncomplicated Status: Acute Assessment and Plan: Smoking cessation is imperative and was discussed. Subjective Date/time seen: 04/18/20 11:40 Interval history: 45-year-old hypertensive male admitted with accelerated hypertension and congestive heart failure. Feels much better able to walk in his room without SOB. Bp still very high 157/119 pt was not taking any BP medications before. Review of Systems Review of Systems: All systems reviewed & are unremarkable except as noted in HPI and below Exam Narrative: Exam Narrative: Temp Pulse Resp BP Pulse Ox 35.8 C L 82 22 H 157/119 H 99 04/18/20 06:52 04/18/20 10:45 04/18/20 06:52 04/18/20 06:52 04/18/20 06:52 Generally : Middle aged man pleasant in nature. Neck: Supple. No JVD. Respiratory: Lungs are clear Cardiovascular: Regular rate and rhythm with S1-S2. S4 evident. Gastrointestinal: Abdomen is soft, nontender, and nondistended with positive bowel sounds. Skin: Warm and dry. No rash or lesions Extremities: No edema. Radial and pedal pulses intact. Neurological: Alert. Cranial nerves 2-12 are grossly intact. No gross focal deficits Psychiatric: Pleasant and cooperative with normal mood and affect. Objective Data Vital Signs Vital Signs: Vital Signs - 24 hr 04/17/20 12:00 04/17/20 14:00 04/17/20 14:24 Temperature 36.0 C L Pulse Rate 70 78 81 Respiratory Rate 20 Blood Pressure 167/133 H Pulse Oximetry 100 04/17/20 16:00 04/17/20 18:00 04/17/20 19:50 Temperature 36.3 C L 36.4 C L Pulse Rate 82 76 76 Respiratory Rate 12 Blood Pressure 176/129 H 158/109 H Pulse Oximetry 9
[2020-04-18] MEDS: POTASSIUM CHLORIDE 20 MEQ TABLET 40 MEQ PO (12:33)
--- NOTE | 2020-04-18 16:30 | PC.NURSE ---
This patient, Pablito Daniels, was transferred to [facility] on 04/18/20 at 1630. Personal belongings sent with patient. Report given to VONNIE Esquivel. Appropriate documentation sent with patient.
--- NOTE | 2020-04-18 16:42 | PC.NURSE ---
Received patient from IMU via wheelchair with IMU staff. Patient awake and alert, ambulating around room. No distress noted and no c/o pain.
[2020-04-18] MEDS: GUAIFENESIN/DEXTROMETHORPHAN 10 ML UDC PO (22:10)
[2020-04-19] VITALS: PULSE 74
[2020-04-19 02:02] VITALS: BP 184/133; PULSE 79; RESP 20; TEMP 36; O2SAT 98
[2020-04-19 04:00] VITALS: PULSE 58
[2020-04-19] MEDS: GUAIFENESIN/DEXTROMETHORPHAN 10 ML UDC 5 ML PO (05:18)
[2020-04-19] MEDS: hydrALAZINE HCL 50 MG TABLET PO (05:18)
[2020-04-19 06:03] LABS: Blood Urea Nitrogen 22 mg/dL (9-20); Calcium 8.9 mg/dL (8.4-10.2); Carbon Dioxide 23 mmol/L (22-30); Chloride 110 mmol/L (98-107); Estimated CRCL calculation 81 ml/min; Estimated Glomerular Filt Rate 55; Glucose 101 mg/dL (75-110); Potassium 4.2 mmol/L (3.4-5.0); Sodium 139 mmol/L (137-145)
[2020-04-19 08:00] VITALS: BP 164/116; PULSE 78
--- NOTE | 2020-04-19 08:29 | PM.PNCARD ---
Progress Note: A&P Additional Plan Follow-up visit in 45-year-old man with longstanding hypertension apparent diagnosis of hypertensive cardiomyopathy. Told the patient that his stress test yesterday does not show any evidence suggesting significant ischemic heart disease. Blood pressure still rather high despite full-dose carvedilol lisinopril and some hydralazine. I am going to go ahead and add some amlodipine to the regimen for this reason No cardiac reason he cannot be discharged and we will see him in follow-up in our office Dave Pinedo MD [facility] Subjective Date/time seen: 04/19/20 08:29 Interval history: chief complaint: Shortness of breath, heart failure, hypertension Date of service 04/19/2020 patient is asymptomatic this morning feels well and hoping to be discharged. Blood pressure is better but still elevated. Discussion with the patient about importance of pursuing his diagnosis of sleep apnea after discharge and need to establish with a PCP for this reason Exam Const: General: comfortable and no acute distress HENMT: Mouth: Yes moist mucous membranes Eyes: Sclera: sclerae normal Pupils: Equal, round and reactive pupils present Neck: Neck: supple and no JVD Thyroid: thyroid normal Resp: Effort & Inspection: normal respiratory effort Auscultation: clear to auscultation bilaterally Cardio: Rate: regular rate Rhythm: regular rhythm Other: S4 gallop is present, no murmur GI: Auscultation: normal bowel sounds Skin: General skin exam: normal color Neuro: Cognition (Neuro): normal cognition Extrem: General: normal to inspection Objective Data Vital Signs Vital Signs: Vital Signs - 24 hr 04/18/20 10:00 04/18/20 10:45 04/18/20 12:00 Temperature Pulse Rate 86 82 53 L Respiratory Rate Blood Pressure Pulse Oximetry 04/18/20 12:29 04/18/20 14:20 04/18/20 16:00 Temperature 35.8 C L Pulse Rate 77 71 73 Respiratory Rate 20 Blood Pressure 151/116 H 155/102 H Pulse Oximetry 100 04/18/20 16:23 04/18/20 20:00 04/18/20 21:08 Temperature 35.8 C L Pulse Rate 80 83 69 Respiratory Rate 20 Blood Pressure 184/96 H Pulse Oximetry 98 04/18/20 21:18 04/18/20 23:55 05/23/20 00:00 Temperature 36.1 C L Pulse Rate 69 72 74 Respiratory Rate 22 H 18 Blood Pressure 163/123 H Pulse Oximetry 97 95 04/19/20 02:02 04/19/20 04:00 04/19/20 08:00 Temperature 36.0 C L Pulse Rate 79 58 L 78 Respiratory Rate 20 Blood Pressure 184/133 H 164/116 H Pulse Oximetry 98 Intake/Output Intake/Output: Intake & Output 04/16/20 04/17/20 04/18/20 04/19/20 23:59 23:59 23:59 23:59 Intake Total 2110 960 1360 250 Output Total 0 850 Balance 2110 960 1360 -600 Meds/Results Medications: Active Medications Generic Name Dose Route Start Last Admin Trade Name Freq PRN Reason Stop Dose Admin Acetaminophen 650 mg 04/15/20 00:19 04/15/20 06:29 Tylenol Tablet PO 650 mg Q4H PRN Administration Mild Pain (1-3) or Fever Aspirin 81 mg 04/15/20 08:00 04/18/20 08:57 Aspirin Chewable PO 81 mg DAILY@0800 GORDON Administration Carvedilol 25 mg 04/15/20 21:00 04/18/20 21:08 Coreg PO 25 mg Q12HR GORDON Administration Guaifenesin/Dextromethorphan 5 ml 04/18/20 22:21 04/19/20 05:18 Robitussin-Dm Syrup PO 5 ml Q4H PRN Administration Cough Hydralazine HCl 50 mg 04/17/20 17:00 04/19/20 05:18 Apresoline Tablet PO 50 mg Q8HR GORDON Administration Isosorbide Mononitrate 30 mg 04/17/20 09:00 04/18/20 08:57 Imdur PO 30 mg QAM GORDON Administration Lisinopril 20 mg 04/16/20 09:00 04/18/20 08:57 Prinivil PO 20 mg QAM GORDON Administration Lorazepam 0.5 mg 04/15/20 16:45 04/18/20 21:10 Ativan Tab PO 0.5 mg Q6H PRN Administration Anxiety Nitroglycerin 0.4 mg 04/14/20 14:33 Nitrostat Subl 0.4 Mg (1/150) SUBLINGUAL Q5MIN PRN Chest Pain Spironolactone 25 mg 04/15/20
[2020-04-19] MEDS: ISOSORBIDE MONONITRATE 30 MG TAB.ER.24H PO (09:36)
[2020-04-19 09:37] VITALS: PULSE 72
[2020-04-19] MEDS: ASPIRIN 81 MG CHEWABLE TABLET PO (09:37)
[2020-04-19] MEDS: lisinopriL 20 MG TABLET PO (09:37)
[2020-04-19] MEDS: carvediloL 25 MG TABLET PO (09:37)
[2020-04-19] MEDS: SPIRONOLACTONE 25 MG TABLET PO (09:37)
[2020-04-19] MEDS: AMLODIPINE BESYLATE 5 MG TABLET 10 MG PO (09:38)
[2020-04-19] MEDS: LORAZEPAM 0.5 MG TABLET PO (09:42)
[2020-04-19 12:00] VITALS: PULSE 78
--- NOTE | 2020-04-19 17:00 | PM.DS ---
DS: Admitting Diagnosis Admitting Diagnosis Admitting Diagnosis: Heart failure, unspecified DS: Discharge Diagnosis Discharge Diagnosis (1) Congestive heart failure: Qualifiers: Heart failure chronicity: acute Heart failure type: unspecified Qualified Code(s): I50.9 - Heart failure, unspecified Code(s): I50.9 - Heart failure, unspecified Status: Acute Assessment and Plan: Clinically has congestive heart failure with elevated BNP and pulmonary edema noted on imaging. Confirmed by echo 04/15 EF 35%, EF 26% by nuclear LVH chest x-ray and echo, likely due to longstanding uncontrolled hypertension. diuresed, MARTIR-inhibitor, beta-osiel, cardiology added hydralazine and nitrate stopped diruretic with increasing bun and creatinine and appeared euvolemic other than low-dose spironolactone which will be continued . (2) Hypertensive urgency: Code(s): I16.0 - Hypertensive urgency Status: Acute Assessment and Plan: Longstanding, uncontrolled hypertension. He has been started on carvedilol and lisinopril and adding hydralazine and nitrate and amlodipine at discharge along with spironolactone . LENY not seen on doppler (3) Elevated troponin: Code(s): R79.89 - Other specified abnormal findings of blood chemistry Status: Acute Assessment and Plan: Secondary to CHF and uncontrolled hypertension. Echocardiogram as above. (4) Noncompliance with medications: Code(s): Z91.14 - Patient's other noncompliance with medication regimen Status: Acute Assessment and Plan: Patient told dr akins he did not take his antihypertensives because made him feel sleepy. History suggestive of possible sleep apnea, direct apnea link + with AHI index of 33 and desaturations , will need former EDWARD testing in future. Dr akins discussed the importance of controlling his hypertension, and the complication he can expect should it continue to go uncontrolled. (5) Tobacco dependence: Code(s): F17.200 - Nicotine dependence, unspecified, uncomplicated Status: Acute Assessment and Plan: Smoking cessation is imperative and was discussed. Between 3 and 5 minutes were spent counseling the patient in smoking cessation. He seems motivated, tells me he only started smoking within the last 10 years or less. (6) EDWARD (obstructive sleep apnea): Code(s): G47.33 - Obstructive sleep apnea (adult) (pediatric) Status: Acute Assessment and Plan: Apnea link positive with AHI index of 33 and hypoxia. Will need formal sleep apnea testing as an outpatient DS: Summary Time Spent with Patient Time attestation: Total time spent providing and/or coordinating discharge services: 35 minutes Exam Narrative: Exam Narrative: Condition on discharge blood pressure 158/110 right arm sitting pulse 78 Lungs clear CV regular rate rhythm no murmurs Abdomen is soft nontender Extremities without edema good distal pulses Neuro alert pleasant cooperative DS: Data Data Completed and Pending Labs on day of discharge: Labs from last 24 hours 04/19/20 04/16/20 05:20 10:56 Sodium 139 Potassium 4.2 Chloride 110 H Carbon Dioxide 23 BUN 22 H Creatinine 1.40 H Estim Creat Clear Calc 81 Estimated GFR 55 L Glucose 101 Calcium 8.9 Renin 0.20 L Discharge Plan Discharge Attending physician on discharge: Timi Holliday Consulting providers: James High ; Davi Dowell Discharging Clinician: Timi Holliday Patient Disposition: Home, Self-Care Activity: other - see discharge instructions Diet: low sodium Discharge Instructions: LILA
== END 2020-04-19 13:20 | disposition home or self-care (01) | DRG 194 ==
LOC: ANHED 14:51 → ANHIMU 16:27 → ANH2MED 04-19 12:24 → ANHIMU 04-23 13:53
PROVIDERS: Family Medicine; Internal Medicine Cardiovascular Disease; Physician Assistant; Admitting Provider Internal Medicine; Emergency Provider Emergency Medicine; Visit Provider Internal Medicine
DX: I11.0 Hypertensive heart disease with heart failure (principal); I50.21 Acute systolic (congestive) heart failure; F17.210 Nicotine dependence, cigarettes, uncomplicated; F12.929 Cannabis use, unspecified with intoxication, unspecified; Z91.14 Patient's other noncompliance with medication regimen; E87.6 Hypokalemia; I43 Cardiomyopathy in diseases classified elsewhere
CPT/HCPCS: 36415; 71045; 71046; 71275; 78452; 80048; 82088; 83735; 83880; 84244; 84436; 84443; 84484; 85025; 85380; 85610; 85730; 93005; 93017; 93306; 93976; 96374; 96376; 99285; A9270; A9502; G0378; G0379; J1940; J2785; Q9967

== ENCOUNTER 2020-05-12 14:53 | Outpatient (CLI) | payer MEDICAID, SELFPAY ==
[2020-05-12 15:38] LABS: Alanine Aminotransferase 32 U/L (4-50); Albumin Level 4.3 g/dL (3.5-5.1); Alkaline Phosphatase 63 U/L (38-126); Aspartate Amino Transferase 29 U/L (17-59); Bilirubin,Total 0.4 mg/dL (0.2-1.3); Blood Urea Nitrogen 17 mg/dL (9-20); Calcium 9.3 mg/dL (8.4-10.2); Carbon Dioxide 26 mmol/L (22-30); Chloride 103 mmol/L (98-107); Estimated Glomerular Filt Rate 55; Glucose 102 mg/dL (75-110); Potassium 4.4 mmol/L (3.4-5.0); Sodium 137 mmol/L (137-145)
== END 2020-05-12 14:54 | disposition home or self-care (01) ==
PROVIDERS: Visit Provider Nurse Practitioner Adult Health
DX: I50.42 Chronic combined systolic (congestive) and diastolic (congestive) heart failure (principal)
CPT/HCPCS: 36415; 80053

== ENCOUNTER 2020-06-27 12:54 | Outpatient (CLI) | payer OTHER, SELFPAY ==
[2020-06-27 13:38] LABS: Alanine Aminotransferase 32 U/L (4-50); Albumin Level 4.2 g/dL (3.5-5.1); Alkaline Phosphatase 55 U/L (38-126); Anion Gap 11.5 mmol/L (7-16); Aspartate Amino Transferase 28 U/L (17-59); Bilirubin,Total 0.4 mg/dL (0.2-1.3); Blood Urea Nitrogen 17 mg/dL (9-20); Calcium 8.8 mg/dL (8.4-10.2); Carbon Dioxide 23 mmol/L (22-30); Chloride 106 mmol/L (98-107); Cholesterol 258 mg/dL (0-200); Estimated Glomerular Filt Rate > 60; Glucose 98 mg/dL (75-110); HDL Direct 43 mg/dL; Potassium 4.5 mmol/L (3.4-5.0); Sodium 136 mmol/L (137-145); Triglycerides 474 mg/dL (<150)
[2020-06-27 13:48] LABS: LDL Cholesterol Direct 153 mg/dL
[2020-06-27 14:08] LABS: Prostate Specific Antigen 1.5 ng/mL (< OR = 4.0)
[2020-06-27 14:25] LABS: Vitamin D 25 Hydroxy 30.8 ng/mL
[2020-07-01 00:17] LABS: Testosterone Total 336 ng/dL (250-1100)
== END 2020-06-27 12:55 | disposition home or self-care (01) ==
PROVIDERS: PCP Family Medicine; Visit Provider Nurse Practitioner Adult Health
DX: I50.22 Chronic systolic (congestive) heart failure (principal); R63.5 Abnormal weight gain; I10 Essential (primary) hypertension; N52.9 Male erectile dysfunction, unspecified; E55.9 Vitamin D deficiency, unspecified
CPT/HCPCS: 36415; 80053; 80061; 82306; 84153; 84403; 84443

== ENCOUNTER 2021-04-25 12:38 | Emergency (ER) | payer OTHER, SELFPAY ==
--- NOTE | ~2021-04-25 | CT_ITS ---
EXAMINATION: Vito Rosales MD DATE: 04/25/2021 12:58 INDICATION: Chest and abdominal pain. TECHNIQUE: Computed tomographic angiography (CTA) of the chest, abdomen, and pelvis was performed wit h 100 mL Omnipaque-350 intravenous contrast. Automated exposure control and iterative reconstruction technique were employed. The dose-length product was 1758.73 mGy-cm. Maximum intensity projection 3D- reconstructions of the aorta and other arteries were constructed by the technologist on a separate wo rkstation. COMPARISON: Chest CT 04/14/2020 FINDINGS: CHEST CTA: There is mild emphysema. No pleural effusion. There is a coarse calcification in right thyroid lobe, likely not clinically significant. Bilateral gynecomastia is noted. The heart size is normal. There a re coronary artery calcifications. No pericardial effusion. There is ectasia of ascending aorta measu ring 4.3 cm. There is a dissection of the aorta beginning just distal to the origin of the left subcl kasey artery. The dissection continues to at least the common femoral arteries bilaterally. There is a small sliding hiatal hernia. ABDOMEN AND PELVIS CTA: The liver, gallbladder, spleen, pancreas, and adrenal glands, and right kidney are normal. There are cysts in the left kidney measuring up to 1.8 cm. The dissection involves left renal artery, and there is fat stranding around left renal artery. The prostate is mildly enlarged. There are no dilated loo ps of bowel. The appendix is normal. Inferior mesenteric artery arises from the false lumen. There is severe stenosis of the true lumen in the common and external iliac arteries and left common femoral artery. There is moderate stenosis of the right common femoral artery and proximal superficial femora l arteries. There is severe stenosis versus occlusion of left profunda femoris. There are no patholog ically enlarged lymph nodes. There is no free intraperitoneal fluid. There is severe lower lumbar spo ndylosis. IMPRESSION: 1. Type B aortic dissection extending at least to the common femoral arteries and possibly to the sup erficial femoral arteries. Dissection of left renal artery. Reviewed, dictated and finalized at location A. IMPRESSION: 1. Type B aortic dissection extending at least to the common femoral arteries a nd possibly to the superficial femoral arteries. Dissection of left renal arter y.
[2021-04-25 12:41] VITALS: BP 184/110; PULSE 81; RESP 14; TEMP 36.6; O2SAT 100
--- NOTE | 2021-04-25 12:52 | ED.CHESTPAIN ---
HPI - Chest Pain General Chief Complaint: Chest Pain Stated Complaint: chest pain Time Seen by Provider: 04/25/21 12:45 Source: patient Mode of arrival: ambulatory Limitations: no limitations History of Present Illness HPI narrative: Patient is a 46-year-old male complaining of chest pain, 10 out of 10, sharp, radiating to the abdomen that started today. Patient states that he also has bilateral lower extremity weakness and numbness. Patient also complained shortness of breath and was diaphoretic upon arrival. Denies any fever or chills. Related Data Allergies Allergy/AdvReac Type Severity Reaction Status Date / Time No Known Allergies Allergy Verified 04/25/21 12:45 Review of Systems Review of Systems: All systems reviewed & are unremarkable except as noted in HPI and below Constitutional: Constitutional: Denies body ache(s), Denies chills, Denies excessive sweating, Denies fatigue, Denies fever(s), Denies headache(s), Denies lethargy, Denies malaise, Denies weakness and Denies weight loss Eyes: Eyes: Denies blurry vision, Denies change in vision and Denies loss of vision ENT: Denies dizziness, Denies ear discharge, Denies headache(s), Denies lip swelling, Denies epistaxis, Denies nasal congestion, Denies neck pain, Denies throat swelling and Denies tongue swelling Cardiovascular: Cardiovascular: Denies diaphoresis, Denies rapid heart rate, Denies edema, Denies irregular heart rhythm, Denies lightheadedness and Denies palpitations Respiratory: Respiratory: Denies chest congestion, Denies cough and Denies hemoptysis Gastrointestinal: Gastrointestinal: Denies melena, Denies hematochezia, Denies diarrhea, Denies nausea, Denies vomiting and Denies hematemesis Musculoskeletal: Musculoskeletal: Denies abnormal gait, Denies deformity, Denies joint swelling, Denies limited range of motion, Denies neck pain and Denies numbness Neurologic: Denies Abnormal speech present, Denies abnormal gait, Denies confusion, Denies dizziness, Denies headache(s), Denies focal weakness, Denies loss of vision, Denies numbness, Denies Other visual disturbances, Denies Sensory deficit (Neuro) and Denies weakness Psychiatric: Psychiatric: Denies confusion, Denies depression, Denies auditory hallucinations, Denies homicidal ideation and Denies suicidal ideation Endocrine: Endocrine: Denies cold intolerance, Denies excessive sweating, Denies fatigue, Denies heat intolerance and Denies palpitations Hematologic/Lymphatic: Hematologic/Lymphatic: Denies easy bleeding and Denies easy bruising Allergic/Immunologic: Allergic/Immunologic: Denies lip swelling, Denies throat swelling and Denies tongue swelling PMFSH Past Medical History Medical History Hypertension Tobacco dependence Surgical History Surgical History No significant past surgical history Family History Family History Other Unknown family medical history Social History Social History Social History: The patient was raised by his grandmother,, and does not know much about his parents. He does know that they are both in his father was an alcoholic. The patient himself has 4 children, who are healthy. He lives in [place] with his fiancee and children. He smokes about half a pack of cigarettes per day and has for the last 10 years. He drinks alcohol socially on the weekends, and in moderation, perhaps 6 beers a week. Occasional marijuana use. He designates his fiancee, Eliz Arias, as his surrogate decision maker and he wishes to be a full code. Smoking packs per day: 0.5 Smoking cigarettes per day: 10.0 Years smoked: 9 Smoking pack-years: 4.50 Smoking status: Light tobacco smoker Tobacco type: cigarettes Alcohol intake: current Drinks per
[2021-04-25 13:00] VITALS: PULSE 75
[2021-04-25 13:06] VITALS: BP 184/110; PULSE 75; RESP 14; TEMP 36.6; O2SAT 100
[2021-04-25 13:07] VITALS: BP 242/126; PULSE 67; RESP 22; O2SAT 100
[2021-04-25 13:07] LABS: Estimated CRCL calculation 89 ml/min; Estimated Glomerular Filt Rate 59
[2021-04-25 13:07] LABS: Basophils Absolute Auto 0.1 K/mm3 (0.0-0.1); Basophils Percent Auto 0.6 % (0.2-1.2); Eosinophils Absolute Auto 0.4 K/mm3 (0-0.3); Eosinophils Percent Auto 3.6 % (0-4.4); Hematocrit 45.5 % (42.0-52.0); Hemoglobin 15.4 g/dL (14.0-18.0); Immature Granulocyte Absolute 0.06 K/mm3 (0.00-0.031); Immature Granulocyte Percent A 0.5 % (0-0.5); Lymphocytes Absolute Auto 4.36 K/mm3 (0.9-3.2); Mean Corpuscular HGB Conc 33.8 g/dl (32-36); Mean Corpuscular Hemoglobin 31.6 pg (26-34); Mean Corpuscular Volume 93.2 fl (80-100); Mean Platelet Volume 10.4 fl (7.4-10.4); Monocytes Percent Auto 8.6 % (2.6-8.5); Neutrophils Absolute Auto 5.3 K/mm3 (1.3-6.7); Neutrophils Percent Auto 47.7 % (45.5-73.1); Platelet Count Result 237 k/mm3 (150-375); Red Blood Count 4.88 M/mm3 (4.6-6.20); Red Cell Distribution Width 13.2 % (11.5-14.5); White Blood Count 11.2 K/mm3 (4.5-10.0)
[2021-04-25] MEDS: LORazepam INJ (*CRX) 2 MG/ML VIAL 1 MG IV PUSH (13:07)
[2021-04-25] MEDS: LABETALOL HCL INJ 100 MG/20 ML VIAL 20 MG IV PUSH (13:17)
[2021-04-25 13:18] LABS: Alanine Aminotransferase 27 U/L (4-50); Albumin Level 4.3 g/dL (3.5-5.1); Alkaline Phosphatase 71 U/L (38-126); Anion Gap 19 mmol/L (8-16); Aspartate Amino Transferase 31 U/L (17-59); Bilirubin,Total 0.3 mg/dL (0.2-1.3); Blood Urea Nitrogen 8 mg/dL (9-20); Calcium 9.4 mg/dL (8.4-10.2); Carbon Dioxide 16 mmol/L (22-30); Chloride 111 mmol/L (98-107); Estimated CRCL calculation 96 ml/min; Estimated Glomerular Filt Rate > 60; Glucose 116 mg/dL (75-110); Potassium 3.4 mmol/L (3.4-5.0); Sodium 146 mmol/L (137-145)
[2021-04-25] MEDS: MORPHINE SULFATE (*CRX) 4 MG/ML INJ IV PUSH (13:18)
[2021-04-25 13:19] VITALS: BP 163/94; PULSE 50; RESP 19; O2SAT 100
[2021-04-25 13:45] VITALS: BP 142/88; PULSE 50; RESP 18; O2SAT 99
[2021-04-25 13:59] LABS: Troponin I < 0.012 ng/mL (0.000-0.034)
[2021-04-25 14:01] LABS: INR 0.9; Prothrombin Time 12.2 Seconds (11.1-14.7)
[2021-04-25 14:03] LABS: Partial Thromboplastin Time 23.8 SECONDS (22.3-36.8)
[2021-04-25 14:18] LABS: D Dimer 4.29 ug/mL (<0.48)
--- NOTE | 2021-04-25 16:31 | ECG_ITS ---
Measurements Intervals [place] Rate: 75 P: 69 MD: 199 QRS: 11 QRSD: 96 T: 40 QT: 449 QTc: 502 Interpretive Statements SINUS RHYTHM POSSIBLE LEFT ATRIAL ENLARGEMENT DELAYED PRECORDIAL R/S TRANSITION PROLONGED QT INTERVAL BASELINE ARTIFACT- II, III, AVR, AVL, AVF, V4-V6 ABNORMAL ECG Electronically Signed On 04-25-2021 18:24:14 CDT by Moshe Chavez D.O.
== END 2021-04-25 13:45 | disposition short-term general hospital (02) ==
PROVIDERS: Emergency Provider Emergency Medicine; PCP Family Medicine
DX: I71.02 Dissection of abdominal aorta (principal); I10 Essential (primary) hypertension; F17.210 Nicotine dependence, cigarettes, uncomplicated; I77.73 Dissection of renal artery
CPT/HCPCS: 36415; 71275; 74174; 80053; 84484; 85025; 85380; 85610; 85730; 93005; 96374; 96375; 99291; J2060; J2270; Q9967